=== PATIENT | male | born 1945 | race Caucasian/White ===

== ENCOUNTER → 2024-08-01 | Outpatient (CLI) | payer MEDICARE, BC, SELFPAY ==
--- NOTE | 2024-08-01 14:35 | XR_ITS ---
Examination: PA lateral chest 2 views Technique: Upright PA lateral chest 2 views Exam date and time: August 01, 2024 1524 hrs. Indications: Diagnosis pneumonia unspecified Findings: Bilateral extensive interstitial disease Moderate enlargement left ventricle Mild vascular congestion Impression: Bilateral extensive interstitial disease, consider pulmonary fibrosis, bronchiectasis Suggest high-resolution CT chest without contrast follow-up
== END | disposition home or self-care (01) ==
PROVIDERS: PCP Family Medicine; Referring Provider Physician Assistant; Visit Provider Physician Assistant
DX: J84.10 Pulmonary fibrosis, unspecified (principal)
CPT/HCPCS: 71046

== ENCOUNTER → 2024-08-08 | Outpatient (CLI) | payer MEDICARE, BC, SELFPAY ==
--- NOTE | 2024-08-08 16:30 | XR_ITS ---
Examination: CT chest, without intravenous contrast. Sagittal and coronal 2-D reconstructions. Exam date and time: August 08, 2024 1647 hours INDICATIONS: Diagnosis acute bronchitis secondary to mycoplasma, coughing 2 weeks CTDI:vol (mGy) 10.6 DLP: (mGycm) 393 Technique: Multiple 3.0 mm axial sections of the chest to been obtained. Bone and lung density settings are obtained. Sagittal and coronal 2-D reconstructions have been obtained. Low dose protocols were performed. One or more of the following dose reduction techniques were used; automated exposure control, adjustment of the mA and/or KV according to patient size, use of iterative reconstruction technique. Findings: No thoracic aortic aneurysm dilatation Pulmonary artery segments are not enlarged Heavy calcification left main left anterior descending left circumflex coronary arteries No paratracheal tracheobronchial or bronchopulmonary adenopathy Severe bilateral pulmonary fibrosis Mild to moderate bibasilar bronchiectasis No focal liver lesions Contracted gallbladder Spleen not enlarged Atrophic pancreas IMPRESSION: Heavy coronary artery calcification Severe bilateral pulmonary fibrosis
== END | disposition home or self-care (01) ==
LOC: CCTX 16:43
PROVIDERS: PCP Physician Assistant; Referring Provider Physician Assistant; Visit Provider Physician Assistant
DX: I25.10 Atherosclerotic heart disease of native coronary artery without angina pectoris (principal); J84.10 Pulmonary fibrosis, unspecified
CPT/HCPCS: 71250

== ENCOUNTER → 2024-10-12 | Outpatient (CLI) | payer MEDICARE, BC, SELFPAY ==
--- NOTE | 2024-10-12 | XR_ITS ---
Examination: PA lateral chest 2 views TECHNIQUE: Upright PA lateral chest 2 views Exam date and time: October 12, 2024 1222 hours Comparison August 01, 2024 INDICATIONS: Coughing shortness of breath 2 months. FINDINGS: Again noted bilateral interstitial disease consistent with pulmonary fibrosis and possible bronchiectasis Mild prominence left ventricle Prominent osteopenia IMPRESSION: Again noted findings most consistent with significant bilateral pulmonary fibrosis
== END | disposition home or self-care (01) ==
PROVIDERS: PCP Family Medicine; Referring Provider Specialist; Visit Provider Specialist
DX: R91.8 Other nonspecific abnormal finding of lung field (principal)
CPT/HCPCS: 71046